=== PATIENT | male | born 1995 | race Caucasian/White ===

== ENCOUNTER 2024-06-04 16:48 | Emergency (ER) | payer OTHER, SELFPAY ==
[2024-06-04] VITALS (10 sets, daily range): BP systolic 138–160; BP diastolic 79–94; PULSE 47–120; RESP 16–27; TEMP 36.5; O2SAT 97–100; BMI 21.9
--- NOTE | 2024-06-04 17:04 | EKG_ITS ---
[address] [address] Test Date: 2024-06-04 Pat Name: Richard Hwang Department: Room: Gender: Male [employer]: CECE : 1995 Requested By: Order Number: [id number] Reading MD: Guilherme Cadena Measurements Intervals [place] Rate: 57 P: 51 LA: 158 QRS: 86 QRSD: 112 T: 62 QT: 434 QTc: 422 Interpretive Statements Sinus bradycardia Electronically Signed On 06-05-2024 18:09:06 PDT by Guilherme Cadena
--- NOTE | 2024-06-04 17:12 | DI.RAD.S_ITS ---
PROCEDURE: XR CHEST 1V INDICATIONS: chest pain TECHNIQUE: One view of the chest was acquired. COMPARISON: None. FINDINGS: Surgical changes and devices: None. Lungs and pleura: Lungs are clear. No pleural effusions or pneumothorax. Mediastinum: Mediastinal contours appear normal. Heart size is normal. Bones and chest wall: No suspicious bony lesions. Overlying soft tissues appear unremarkable. IMPRESSION: No acute cardiopulmonary abnormality is seen. Dictated by: Robe Marcelo M.D. on 06/04/2024 at 19:40 Approved by: Robe Marcelo M.D. on 06/04/2024 at 19:40
[2024-06-04 17:30] LABS: Add Manual Diff / Slide Review NO; Basophils Absolute Auto 0 /uL (0-100); Basophils Percent Auto 0.5 % (0-2); Eosinophils Absolute Auto 100 /uL (0-450); Eosinophils Percent Auto 1.3 % (2-4); Hematocrit 47.5 % (41-53); Hemoglobin 16.3 g/dL (13.5-17.5); Lymphocytes Absolute Auto 2600 /uL (1100-4500); Lymphocytes Percent Auto 37.4 % (25-40); Mean Corpuscular HGB Conc 34.3 % (30-36); Mean Corpuscular Hemoglobin 30.5 PG (26-34); Mean Corpuscular Volume 88.7 fL (80-100); Monocytes Absolute Auto 500 /uL (0-900); Monocytes Percent Auto 6.8 % (3-14); Neutrophils Absolute Auto 3800 /uL (1500-7000); Platelet Count 216 X10^3/uL (150-400); Red Blood Cell Count 5.36 X10^6/uL (4.5-5.9); Red Cell Distribution Width 12.6 % (11.6-14.8)
[2024-06-04 17:45] LABS: PTT Partial Thromboplastin Tim 36 SECONDS (25.1-36.5)
[2024-06-04 17:48] LABS: Alanine Aminotransferase 19 IU/L (<50); Albumin 4.9 g/dL (3.5-5.0); Albumin Globulin Ratio 1.6 (1.0-2.8); Alkaline Phosphatase 60 U/L (38-126); Aspartate Aminotransferase 32 IU/L (17-59); BUN Creatinine Ratio 13.5 (6-22); Blood Urea Nitrogen 17 mg/dL (9-20); Calcium 9.9 mg/dL (8.4-10.2); Carbon Dioxide 26 mmol/L (22-32); Chloride 103 mmol/L (98-107); Creatine Kinase 91 U/L (55-170); Estimated Glomerular Filt Rate > 60 mL/min (>60); Globulin 3.1 g/dL (1.7-4.1); Glucose 99 mg/dL (70-100); HEMOLYSIS 35 (0-50); Lipase 115 U/L (23-300); Magnesium 2.1 mg/dL (1.6-2.3); Potassium 4.2 mmol/L (3.4-5.1); Sodium 138 mmol/L (137-145)
[2024-06-04 17:59] LABS: NT-proBNP (BNP-Adult 18+) < 20 pg/mL (<125); Troponin I < 0.012 ng/mL (0.01-0.034)
--- NOTE | 2024-06-04 18:01 | PC.NURSE ---
Orthostatics obtained pior to pt using urinal. No change in HR or BP with change of position. Pt tolerated well
--- NOTE | 2024-06-04 19:21 | ED_ITS ---
HPI - General Adult General Chief complaint: Dizziness Stated complaint: shaky/diaphoretic Time Seen by Provider: 06/04/24 17:58 Source: patient Mode of arrival: EMS History of Present Illness HPI narrative: Patient is a 28-year-old male who was at work when he states he had a fairly sudden onset of feeling shaky and diaphoretic and dizziness/lightheadedness. No chest pain. No palpitations. No abdominal pain. At the time of my evaluation he reports that his symptoms have improved except for some of the shakiness. No fevers. No sinus congestion or sore throat. Related Data Allergies Allergy/AdvReac Type Severity Reaction Status Date / Time No Known Drug Allergies Allergy Verified 06/04/24 16:59 Review of Systems Review of Systems ROS Unobtainable: All systems reviewed & are unremarkable except as noted in HPI and below Patient History Social History Smoking Status: Never smoker Smoking Status: Never smoker alcohol intake frequency: holidays/special occasions only Substance Use Type: does not use Exam Initial Vital Signs Initial Vital Signs: Vital Signs Pulse Rate 76 06/04/24 16:51 Respiratory Rate 16 06/04/24 16:51 Pulse Oximetry 98 06/04/24 16:51 Const General: cooperative, comfortable and No ill appearing HENIL Head: normal to inspection and normocephalic Resp Effort & Inspection: normal respiratory effort Auscultation: clear to auscultation bilaterally Cardio Rate: regular rate GI Inspection: normal to inspection Skin General: no rashes or lesions noted Neuro General: patient alert, patient awake, patient oriented x3 and moves all extremities Extrem General: capillary refill normal Scores GCS [place] coma scale eye opening: Spontaneous Jan coma scale verbal response: Orientated [place] coma scale motor response: Obey commands Jan coma scale total score: 15 Course Orders Ordered: ED Orders 06/04/24 17:10 EKG-12 Lead Stat 06/04/24 17:12 XR chest 1V Stat 06/04/24 17:20 Complete Blood Count AUTO DIFF Stat Comprehensive Metabolic Panel Stat Lipase Stat Magnesium Stat NT-proBNP (BNP-Adult 18+) Stat PTT Partial Thromboplastin Mikey Stat Prothrombin Time INR Stat Troponin & CK Cardiac Panel Stat Vital Signs Vital signs: Vital Signs - 8 hr 06/04/24 18:30 06/04/24 18:30 06/04/24 19:00 Pulse Rate 54 L 47 L Respiratory Rate 19 Blood Pressure 140/85 Pulse Oximetry 97 98 06/04/24 19:00 Pulse Rate Respiratory Rate Blood Pressure 138/79 Pulse Oximetry Medical Decision Making Lab Data Lab results reviewed: Yes I reviewed the patient's lab results. 06/04/24 17:20 06/04/24 17:20 Labs: Lab Results 06/04/24 Range/Units 17:20 WBC 7.0 (4.5-11.0) X10^3/uL RBC 5.36 (4.5-5.9) X10^6/uL Hgb 16.3 (13.5-17.5) g/dL Hct 47.5 (41-53) % MCV 88.7 (80-100) fL MCH 30.5 (26-34) PG MCHC 34.3 (30-36) % RDW 12.6 (11.6-14.8) % Plt Count 216 (150-400) X10^3/uL Neut % (Auto) 54.0 (50-75) % Lymph % (Auto) 37.4 (25-40) % [place] % (Auto) 6.8 (3-14) % Eos % (Auto) 1.3 L (2-4) % Baso % (Auto) 0.5 (0-2) % Neut # (Auto) 3800 (9869-1157) /uL Lymph # (Auto) 2600 (9598-7668) /uL Ector # (Auto) 500 (0-900) /uL Eos # (Auto) 100 (0-450) /uL Baso # (Auto) 0 (0-100) /uL PT 11.0 (9.4-12.5) SECONDS INR 1.0 (0.9-1.3) APTT 36 (25.1-36.5) SECONDS Sodium 138 (137-145) mmol/L Potassium 4.2 (3.4-5.1) mmol/L Chloride 103 (98-107) mmol/L Carbon Dioxide 26 (22-32) mmol/L BUN 17 (9-20) mg/dL Creatinine 1.26 H (0.66-1.25) mg/dL Estimated GFR > 60 (>60) mL/min BUN/Creatinine Ratio 13.5 (6-22) Glucose 99 (70-100) mg/dL Calcium 9.9 (8.4-10.2) mg/dL Magnesium 2.1 (1.6-2.3) mg/dL Total Bilirubin 1.0 (0.2-1.3) mg/dL AST 32 (17-59) IU/L ALT 19 (<50) IU/L Alkaline Phosphatase 60 (38-126) U/L Total Creatine Kinase 91 (55-170) U/L Troponin I < 0.012 (0.01-0.034) ng/mL NT-Pro-B Natriuret Pep < 20 (<125) pg/mL Total Protein 8.0 (6.3-8.2) g/dL Albumin 4.9 (3.5-5.0) g/dL Globulin 3.1 (1.7-4.1) g/dL Albumin/Globulin Ratio 1.6 (1.0-2.8) Lipase 115 (23-300) U/L Imaging Data Chest x-ray: Radiologist's Impression: PROCEDURE: XR CHEST 1V INDICATIONS: chest pain TECHNIQUE: One view of the chest was acquired. COMPARISON: None. FINDINGS: Surgical changes and devices: None. Lungs and pleura: Lungs are clear. No pleural effusions or pneumothorax. Mediastinum: Mediastinal contours appear normal. Heart size is normal. Bones and chest wall: No suspicious bony lesions. Overlying soft tissues appear unremarkable. IMPRESSION: No acute cardiopulmonary abnormality is seen. ECG Data Attestation: I personally reviewed and interpreted this ECG as follows: Interpretation: Sinus bradycardia Ventricular rate of 57 Normal axis Normal QRS Normal QTC No ST T wave changes MDM Narrative Medical decision making narrative: Patient was now feeling much better except for some shakiness. His labs unremarkable. EKGs unremarkable. Is ambulatory. Vital signs unremarkable. Do not have an exact diagnosis but does not appear to be seizure, CVA, TIA, ACS. Patient was not hypoglycemic. He was no specific source of infection found. Will discharge patient home with follow-up instructions and return precautions. He expressed understanding and agreement with the plan. Discharge Plan Departure Patient Disposition: Home Clinical Impression: Episodic lightheadedness Instructions: DI for Dizziness-Nonvertigo Activity Restrictions/Additional Instructions: Recommend that you continue to take all of your medications as directed. Return to emergency department for new or worsening symptoms Stand Alone Forms: Patient Portal/API, Work Release Note
== END 2024-06-04 19:36 | disposition home or self-care (01) ==
PROVIDERS: Student in an Organized Health Care Education/Training Program; Emergency Provider Emergency Medicine
DX: R42 Dizziness and giddiness (principal); R07.9 Chest pain, unspecified; R00.1 Bradycardia, unspecified
CPT/HCPCS: 36415; 71045; 80053; 82550; 83690; 83735; 83880; 84484; 85025; 85610; 85730; 93005; 99283; 99284